=== PATIENT | male | born 1995 | race Caucasian/White ===

== ENCOUNTER 2017-08-09 22:51 | Emergency (ER) | payer OTHER ==
--- NOTE | 2017-08-09 23:54 | ED ---
Abdominal Pain/Male - HPI Summary HPI Summary: Pt here w/ "hip pain" today. Upon further investigation appears to be LLQ pain. He reports he noticed this after running sprints in the basketball court last night was performing agility sprints. Denies acute pain or pulled muscle sensation at that time. Today he has pain in left lower quadrant with transitioning from lying to sitting to standing. Area is also tender to touch here. He's had a couple bouts of diarrhea since - denies nausea vomiting and no abdominal pain with eating or drinking which she's been able to do without difficulty. Also denies fevers or chills, respiratory symptoms, headache, fatigue. He has no pain with lower extremity movement, but does have pain with single leg standing on affected side. Denies numbness tingling or weakness into extremity, no incontinence or retention regarding bowel or bladder habits, no back or flank pain, no urinary symptoms, testicular pain/swelling. Denies previous injuries to this area, no hernias and no abdominal surgeries. - History of Current Complaint Chief Complaint: EDExtremityLower Stated Complaint: HIP PAIN Time Seen by Provider: 08/09/17 23:10 Hx Obtained From: Patient Pain Intensity: 8 - Allergies/Home Medications Allergies/Adverse Reactions: Allergies Allergy/AdvReac Type Severity Reaction Status Date / Time No Known Allergies Allergy Verified 08/09/17 22:58 Home Medications: Home Medications NK [No Home Medications Reported] 08/09/17 [History Confirmed 08/09/17] PMH/Surg Hx/FS Hx/Imm Hx Previously Healthy: Yes Endocrine/Hematology History: Denies: Hx Anticoagulant Therapy, Hx Blood Disorders, Autoimmune Disease GI History: Denies: Hx Crohn's Disease, Hx Diverticulosis, Hx Gall Bladder Disease, Hx Gastroesophageal Reflux Disease, Hx Gastrointestinal Bleed, Hx Hiatal Hernia, Hx Irritable Bowel, Hx Obstructive Bowel, Hx Ulcer History: Denies: Hx Kidney Infection, Hx Kidney Stones Musculoskeletal History: Denies: Hx Back Problems - Immunization History Immunizations Up to Date: Yes Infectious Disease History: No Infectious Disease History: Denies: Traveled Outside the [place] in Last 30 Days - Family History Known Family History: Positive: None - Social History Occupation: Student - IC Lives: Alone Alcohol Use: Occasionally Hx Substance Use: No Substance Use Type: Reports: None Hx Tobacco Use: No Smoking Status (MU): Never Smoked Tobacco Review of Systems Constitutional: Negative Negative: Fever, Chills, Fatigue ENT: Negative Cardiovascular: Negative Respiratory: Negative Positive: Abdominal Pain, Diarrhea. Negative: Vomiting, Nausea Genitourinary: Negative Positive: Myalgia - ?. Negative: Decreased ROM Skin: Negative Neurological: Negative Psychological: Normal All Other Systems Reviewed And Are Negative: Yes Physical Exam Triage Information Reviewed: Yes Vital Signs On Initial Exam: Initial Vitals Temp Pulse Resp BP Pulse Ox 98.5 F 73 16 145/90 97 08/09/17 22:54 08/09/17 22:54 08/09/17 22:54 08/09/17 22:54 08/09/17 22:54 Vital Signs Reviewed: Yes Appearance: Positive: Well-Appearing - no pain at rest, reclining on stretcher - report 0/10; has 8/10 pain w/ movements as mentioned in HPI (sitting from reclining, lifting Lt LE to get out of bed)., Obese Skin: Positive: Warm, Skin Color Reflects Adequate Perfusion, Dry - stretch nettles in area but no ecchymosis, no erythema, no lesions Head/Face: Positive: Normal Head/Face Inspection Eyes: Positive: Normal, EOMI, Conjunctiva Clear - anicteric sclera ENT: Positive: Normal ENT inspection, Hearing grossly normal, Pharynx normal - mucosa moist Neck: Positive: Supple Respiratory/Lung Sounds: Positive: Clear to Auscultation, Breath Sounds Present Cardiovascular: Positive: Normal, RRR Abdomen Description: Positive: No Organomegaly, Soft, Guarding, Other: - LLQ TTP - no rebounding - no simran hernia appreciated here however difficult to assess 2ndry to body habitus. Negative: CVA Tenderness (R), CVA Tenderness (L) , Distended Male Genital Exam: Positive: Normal Genitalia, No Hernia. Negative: Scrotum Tenderness (R), Scrotum Tenderness (L), Testicular Tenderness (R), Testicular Tenderness (L) Musculoskeletal: Positive: Strength/ROM Intact - no pain w/ ROM Lt hip standing , Pain @ - LLQ pain and pain w/ single leg standing on Lt leg, Other - greater trochanter NTTP Neurological: Positive: Normal, Sensory/Motor Intact, Alert, Oriented to Person Place, Time, CN Intact II-III Psychiatric: Positive: Normal Diagnostics - Vital Signs Vital Signs Temp Pulse Resp BP Pulse Ox 08/09/17 22:54 98.5 F 73 16 145/90 97 - Laboratory Result Diagrams: 08/09/17 23:50 08/09/17 23:50 Lab Statement: Any lab studies that have been ordered have been reviewed, and results considered in the medical decision making process. Abdominal Pain Fem Course/Dx - Course Course Of Treatment: CT reveals perisigmoid epiploic appendagitis. This correlates w/ pt's sx. Since he is afebrile and w/o elevated WBC's or other inflammatory markers, he is tolerating PO fluids and food w/o N/V, will treat conservatively. He declines pain medication while here - states he will take this at home. He may have close f/u outpt and return to ED if danger s/sx present. - Diagnoses Provider Diagnoses: Epiploic appendagitis Discharge - Sign-Out/Discharge Documenting (check all that apply): Discharge - Discharge Plan Condition: Stable Disposition: HOME Referrals: [facility] [Primary Care Provider] - Additional Instructions: You appear to have a perisigmoid epiploic appendagitis. This simply means you have an inflammation of an area of your colon. This should improve by simply taking acetaminophen 650 mg every 6 hours as needed for pain alternating with ibuprofen 600 mg every 6 hours with food as needed for pain. Your symptoms may last between 3-14 days. If your symptoms improve, he should not require any further intervention. However if symptoms persist or worsen, surgical consult may be necessary. Follow-up with [facility] Sunday for recheck of symptoms. *If in the meantime you develop fever, chills, nausea, vomiting, diarrhea, abdominal pain, return to the emergency department - Billing Disposition and Condition Condition: STABLE Disposition: HOME
[2017-08-10 00:13] LABS: ABS Basophils 0 10^3/ul (0-0.2); ABS Eosinophils 0.1 10^3/ul (0-0.6); ABS Lymphocytes 2.8 10^3/ul (1.0-4.8); ABS Monocytes 0.6 10^3/ul (0-0.8); ABS Neutrophils 3.5 10^3/ul (1.5-7.7); ABS Nucleated RBC 0 10^3/ul; Eosinophil % 1.6 % (0-6); Hematocrit 43 % (42-52); Hemoglobin 15.2 g/dl (14.0-18.0); Lymphocyte % 39.8 % (25-47); Mean Corpuscular HGB Conc 36 g/dl (31-36); Mean Corpuscular Hemoglobin 30 pg (27-31); Mean Corpuscular Volume 84 fL (80-94); Mean Platelet Volume 7.5 um3 (7.4-10.4); Nucleated Red Blood Cells % 0.2; Platelet Count 285 10^3/ul (150-450); Red Cell Distribution Width 13 % (10.5-15); White Blood Count 7.1 10^3/ul (3.5-10.8)
[2017-08-10 00:25] LABS: EGFR Non-African American 98.7 (>60)
[2017-08-10] MEDS ORDERED: Iohexol 300* (CONTRAST) 10 ML SDV IV ONE (01:00)
[2017-08-10 01:57] LABS: Urine Appearance Cloudy; Urine Blood Negative (Negative); Urine Color Yellow; Urine Ketones Negative (Negative); Urine Protein Negative (Negative); Urine Specific Gravity 1.043 (1.010-1.030); Urine Urobilinogen Negative (Negative)
[2017-08-10 03:55] VITALS: BP 140/77
--- NOTE | 2017-08-10 07:50 | RAD ---
INDICATION: Left lower quadrant abdominal pain evaluate for diverticulitis. COMPARISON: There are no prior studies available for comparison. TECHNIQUE: A CT scan of the abdomen and pelvis was performed with intravenous and oral contrast following intravenous injection of 139 ml of Omnipaque 300 nonionic contrast. Contiguous axial sections were obtained from the lung bases through the symphysis pubis. Images were reconstructed in the coronal and sagittal planes. FINDINGS: The lung bases are clear. No pleural effusion is present. The liver and spleen are within normal limits in size without significant focal abnormality. No calcified gallstones are seen. The pancreas appears to be within normal limits in size. The kidneys and adrenal glands are normal in size. No hydronephrosis is seen. No significant focal renal abnormality is seen. The aorta is normal in caliber and demonstrates homogeneous contrast opacification. No significant enlarged retroperitoneal lymph nodes are seen. The stomach is moderately distended and filled with food debris. The small bowel and colon appear nondistended. The appendix is within normal limits. There is a focal area of stranding in the fat anterior to the proximal sigmoid colon most consistent with epiploic appendagitis. No free intraperitoneal air or fluid is seen. No significant focal osseous abnormality is seen. IMPRESSION: FINDINGS MOST CONSISTENT WITH EPIPLOIC APPENDAGITIS OF THE PROXIMAL SIGMOID COLON.
== END 2017-08-10 03:55 | disposition home or self-care (01) ==
LOC: ED 22:51
DX: K63.89 Other specified diseases of intestine (principal); R10.32 Left lower quadrant pain; R19.7 Diarrhea, unspecified
CPT/HCPCS: 36415; 74177; 80053; 81003; 83605; 83690; 83735; 85025; 86140; 99283; Q9967

== ENCOUNTER 2017-08-23 13:12 | Emergency (ER) | payer OTHER ==
[2017-08-23 14:38] VITALS: BP 00/00
--- NOTE | 2017-08-23 15:04 | ED ---
Neck Pain - HPI Summary HPI Summary: Patient is a 22-year-old male who presents emergency department for right-sided neck pain 3 days. Patient does not recall any specific injuries, having lifting or falls. He believes he woke up with the discomfort. He is tried Tylenol and Motrin with minimal relief of pain. Pain is worse with looking to the right. Denies recent illness or fevers. Has no past medical history. Symptoms are mild in severity. Denies numbness, tingling or weakness in upper extremities. - History of Current Complaint Chief Complaint: EDNeckComplaint Stated Complaint: RT NECK PAIN Time Seen by Provider: 08/23/17 14:07 Hx Obtained From: Patient Pain Intensity: 2 Pain Scale Used: 0-10 Numeric - Allergies/Home Medications Allergies/Adverse Reactions: Allergies Allergy/AdvReac Type Severity Reaction Status Date / Time No Known Allergies Allergy Verified 08/23/17 13:16 PMH/Surg Hx/FS Hx/Imm Hx Previously Healthy: Yes Endocrine/Hematology History: Denies: Hx Anticoagulant Therapy, Hx Blood Disorders, Hx Diabetes Cardiovascular History: Denies: Hx Hypertension GI History: Denies: Hx Crohn's Disease, Hx Diverticulosis, Hx Gall Bladder Disease, Hx Gastroesophageal Reflux Disease, Hx Gastrointestinal Bleed, Hx Hiatal Hernia, Hx Irritable Bowel, Hx Obstructive Bowel, Hx Ulcer History: Denies: Hx Kidney Infection, Hx Kidney Stones, Hx Renal Disease Musculoskeletal History: Denies: Hx Back Problems Infectious Disease History: No Infectious Disease History: Denies: Traveled Outside the [place] in Last 30 Days - Family History Known Family History: Positive: None - Social History Occupation: Student Lives: Dormitory/Roommates Alcohol Use: Occasionally Hx Substance Use: No Substance Use Type: Reports: None Hx Tobacco Use: No Smoking Status (MU): Never Smoked Tobacco Review of Systems Constitutional: Negative Negative: Fever, Chills Eyes: Negative ENT: Negative Respiratory: Negative Positive: Other - Numbness, tingling or weakness in upper extremities. Positive for right-sided neck pain. All Other Systems Reviewed And Are Negative: Yes Physical Exam Triage Information Reviewed: Yes Vital Signs On Initial Exam: Initial Vitals Temp Pulse Resp BP Pulse Ox 97.7 F 59 16 143/67 97 08/23/17 13:12 08/23/17 13:12 08/23/17 13:12 08/23/17 13:12 08/23/17 13:12 Vital Signs Reviewed: Yes Appearance: Positive: Well-Appearing Head/Face: Positive: Normal Head/Face Inspection, TMJ Tenderness - Patient sitting up in bed in no acute distress. Will not turn his head to the right. Eyes: Positive: Normal Neck: Positive: Other: - No midline cervical tenderness. No current rigidity. Pain is 10 into the right trapezius muscle. Patient unable to rotate head to the right or extend neck secondary to pain. 5 out of 5 strength in upper extremities without neurosensory deficits. Musculoskeletal: Positive: Normal, Strength/ROM Intact Neurological: Positive: Normal, CN Intact II-III Diagnostics - Vital Signs Vital Signs Temp Pulse Resp BP Pulse Ox 08/23/17 14:37 0 F 74 16 00/00 100 08/23/17 13:12 97.7 F 59 16 143/67 97 - Laboratory Lab Statement: Any lab studies that have been ordered have been reviewed, and results considered in the medical decision making process. Neck Course/Dx - Course Course Of Treatment: Patient presenting to the ER for pain and spasm to the right side of his neck. He is afebrile. He has no midline tenderness or evidence of meningitis. There was no trauma. Will treat with muscle relaxers and anti-inflammatories. Advised heat and gentle massage as well. To follow- up with his family doctor and return to the er if symptoms change or worsen. Patient understands and agrees with plan. - Diagnoses Differential Dx/HQI/PQRI: Positive: Sprain, Strain, Torticollis, Trauma Provider Diagnoses: Torticollis, spasmodic Discharge - Sign-Out/Discharge Documenting (check all that apply): Discharge - Discharge Plan Condition: Good Disposition: HOME Prescriptions: Cyclobenzaprine TAB* [Flexeril 10 MG TAB*] 10 mg PO TID #9 tab Naproxen Sodium [Naproxen Sodium 500 MG TAB] 500 mg PO Q12HR #20 tab Patient Education Materials: Spasmodic Torticollis (ED) Forms: *School Release [facility] [Primary Care Provider] - Additional Instructions: Follow up with your PCP Take medication as directed Apply warm compresses to neck Gentle massage Return to ER if symptoms change or worsen - Billing Disposition and Condition Condition: GOOD Disposition: HOME
== END 2017-08-23 14:37 | disposition home or self-care (01) ==
LOC: ED 13:12
DX: M43.6 Torticollis (principal); J30.9 Allergic rhinitis, unspecified
CPT/HCPCS: 99281